=== PATIENT | male | born 1960 | race Asian ===

== ENCOUNTER 2023-03-18 13:15 | Emergency (ER) | payer OTHER ==
[~2023-03-18] VITALS: Ht 167.6 cm; Wt 70.0 kg
[2023-03-18] MEDS ORDERED: ketorolac trometh. 30mg/ml inj. IV ONE (13:35)
[2023-03-18] MEDS ORDERED: ondansetron/PF 4mg/2ml inj IV ONE (13:35)
[2023-03-18] MEDS ORDERED: morphine 4 MG/ML inj SYRINge IV ONE (13:35)
[2023-03-18 14:02] VITALS: BP 179/81
--- NOTE | 2023-03-18 14:35 | NUR ---
Dr. Delarosa at bedside seeing the patient
--- NOTE | 2023-03-18 14:37 | NUR ---
Dr. Delarosa performed manual reduction of his left shoulder at bedside, tolerated well. Arm sling applied on his left arm
== END 2023-03-18 15:25 | disposition home or self-care (01) ==
LOC: ER 13:16
DX: S43.085A Other dislocation of left shoulder joint, initial encounter (principal); X58.XXXA Exposure to other specified factors, initial encounter; Y93.89 Activity, other specified; Y92.89 Other specified places as the place of occurrence of the external cause; Y99.8 Other external cause status
CPT/HCPCS: 23650; 73020; 73030; 93005; 96374; 96375; 99284; J1885; J2270; J2405; A4565